=== PATIENT | female | born 1995 | race African-American/Black ===

== ENCOUNTER 2017-08-22 14:14 | Emergency (ER) | payer OTHER ==
[~2017-08-22] VITALS: Ht 165.1 cm; Wt 45.0 kg
[2017-08-22 15:14] VITALS: BP 107/72
[2017-08-22] MEDS ORDERED: HYDR10SY11 PO (15:18)
[2017-08-22] MEDS ORDERED: TERB250T11 PO (15:18)
== END 2017-08-22 18:00 | disposition left against medical advice (07) ==
LOC: ER 14:54
DX: R21 Rash and other nonspecific skin eruption (principal); R07.9 Chest pain, unspecified; Z53.21 Procedure and treatment not carried out due to patient leaving prior to being seen by health care provider

== ENCOUNTER 2017-08-23 11:31 | Emergency (ER) | payer OTHER ==
[~2017-08-23] VITALS: Ht 165.1 cm; Wt 45.0 kg
[~2017-08-23 11:31] MED LIST: HYDR10SY11 PO; TERB250T11 PO
[2017-08-23 12:09] VITALS: BP 134/94
== END 2017-08-23 17:50 | disposition home or self-care (01) ==
LOC: ER 13:30
DX: L42 Pityriasis rosea (principal); B35.9 Dermatophytosis, unspecified; F12.10 Cannabis abuse, uncomplicated
CPT/HCPCS: 99283

== ENCOUNTER 2018-06-28 03:00 | Emergency (ER) | payer OTHER ==
[~2018-06-28] VITALS: Ht 157.5 cm; Wt 48.0 kg
[~2018-06-28 03:00] MED LIST changes: -TERB250T11 PO; +TERB250T51 PO
[2018-06-28] MEDS ORDERED: KETOROLAC 30MG/ML VIAL IV ONE (04:30)
[2018-06-28] MEDS ORDERED: ONDANSETRON HCL 4MG/2ML INJ IV ONE (04:30)
[2018-06-28 04:51] LABS: HEMATOCRIT. 43.9 % (36.0-48.0); HEMOGLOBIN. 14.1 g/dL (12.0-16.0); MEAN CORPUSCULAR HEMOGLOBIN 27.8 pg (28.0-32.0); MEAN CORPUSCULAR VOLUME 86.3 fL (81.0-99.0); MEAN PLATELET VOLUME 9.6 fl (7.4-10.4); PLATELET 254 x1000/uL (130-400); RED BLOOD CELL COUNT 5.08 mill/uL (4.2-5.4); RED CELL DISTRIBUTION WIDTH 14.3 % (11.6-14.6)
[2018-06-28 05:00] LABS: CHLORIDE 103 mEq/L (98-107)
[2018-06-28 05:33] LABS: CLARITY URINE CLOUDY (CLEAR); COLOR URINE YELLOW (YELLOW); KETONES URINE 3+ (NEGATIVE); LEUKOCYTE ESTERASE URINE NEGATIVE (NEGATIVE); NITRITE URINE NEGATIVE (NEGATIVE); OCCULT BLOOD URINE NEGATIVE (NEGATIVE); PROTEIN URINE NEGATIVE (NEGATIVE); SPECIFIC GRAVITY URINE 1.015 (1.005-1.030); UROBILINOGEN URINE 0.2 E.U./dL (0.2-1.0)
[2018-06-28 05:55] VITALS: BP 110/66
[2018-06-28 07:43] LABS: PLATELET ESTIMATE NORMAL
== END 2018-06-28 06:26 | disposition left against medical advice (07) ==
LOC: ER 03:00
DX: R10.2 Pelvic and perineal pain (principal); R11.2 Nausea with vomiting, unspecified; F12.10 Cannabis abuse, uncomplicated; Z90.89 Acquired absence of other organs; Z88.0 Allergy status to penicillin; Z88.6 Allergy status to analgesic agent
CPT/HCPCS: 36415; 76830; 76856; 80053; 81003; 81025; 85025; 96374; 96375; 99284; J1885; J2405

== ENCOUNTER 2019-06-09 12:20 | Emergency (ER) | payer OTHER ==
[~2019-06-09] VITALS: Ht 167.6 cm; Wt 54.0 kg
[2019-06-09] MEDS ORDERED: SODIUM CHLORIDE 0.9% 1,000 ML IV ONE (13:02)
[2019-06-09 13:30] LABS: BASOPHILS % 0.5 % (0.0-2.0); EOSINOPHILS % 1.6 % (0.0-5.0); HEMATOCRIT. 39.8 % (36.0-48.0); LYMPHOCYTES % 17.8 % (20.0-50.0); MEAN CORPUSCULAR HEMOGLOBIN 27.2 pg (28.0-32.0); MEAN CORPUSCULAR VOLUME 83.1 fL (81.0-99.0); MEAN PLATELET VOLUME 9.4 fl (7.4-10.4); NEUTROPHILS % 72.1 % (40.0-76.0); PLATELET 211 x1000/uL (130-400); RED BLOOD CELL COUNT 4.79 mill/uL (4.2-5.4); RED CELL DISTRIBUTION WIDTH 16.7 % (11.6-14.6)
[2019-06-09 13:37] LABS: CHLORIDE 110 mEq/L (98-107)
[2019-06-09 13:42] LABS: HCG SCREEN NEGATIVE
[2019-06-09 16:55] VITALS: BP 109/67
== END 2019-06-09 17:11 | disposition home or self-care (01) ==
LOC: ER 12:20
DX: R55 Syncope and collapse (principal); E86.0 Dehydration
CPT/HCPCS: 36415; 71045; 80053; 82962; 83735; 83880; 84484; 84703; 85025; 93005; 96360; 96361; 99284; J7030; Z7610

== ENCOUNTER → 2020-03-20 13:39 | Emergency (ER) | payer OTHER ==
[2020-03-20 13:51] VITALS: BP 114/72
== END | disposition left against medical advice (07) ==
LOC: ER 13:39
DX: Z53.21 Procedure and treatment not carried out due to patient leaving prior to being seen by health care provider (principal)

== ENCOUNTER 2020-11-24 10:39 | Emergency (ER) | payer OTHER ==
[~2020-11-24] VITALS: Ht 165.1 cm; Wt 45.0 kg
[2020-11-24] MEDS ORDERED: ONDANSETRON 4MG ODT PO STA (11:17)
[2020-11-24 11:29] LABS: HEMATOCRIT. 42.8 % (36.0-48.0); HEMOGLOBIN. 14.2 g/dL (12.0-16.0); MEAN CORPUSCULAR HEMOGLOBIN 26.8 pg (28.0-32.0); MEAN CORPUSCULAR VOLUME 80.6 fL (81.0-99.0); MEAN PLATELET VOLUME 9.5 fl (7.4-10.4); PLATELET 243 x1000/uL (130-400); RED CELL DISTRIBUTION WIDTH 18.1 % (11.6-14.6)
[2020-11-24] MEDS ORDERED: SODIUM CHLORIDE 0.9% 1,000 ML IV ONE (11:30)
[2020-11-24] MEDS ORDERED: MAGNESIUM/ALUMINUM HYDROXIDE/SIMETHICONE 30ML UDC PO ONE (11:30)
[2020-11-24] MEDS ORDERED: MORPHINE SULFATE 4 MG/ML CPJ (NOT FOR IM USE) IV STA (11:30)
[2020-11-24] MEDS ORDERED: FAMOTIDINE 20MG TABLET PO SCH (11:30)
[2020-11-24] MEDS ORDERED: VISCOUS LIDOCAINE 2% 15 ML UDC PO ONE (11:30)
[2020-11-24 11:40] LABS: CHLORIDE 106 mEq/L (98-107)
[2020-11-24 12:41] LABS: PLATELET ESTIMATE NORMAL
[2020-11-24 13:07] LABS: UCG SCREEN NEGATIVE
[2020-11-24] MEDS ORDERED: SODIUM CHLORIDE 0.9% 1,000 ML IV NR (13:15)
[2020-11-24 13:16] LABS: CLARITY URINE CLEAR (CLEAR); COLOR URINE YELLOW (YELLOW); KETONES URINE 3+ (NEGATIVE); LEUKOCYTE ESTERASE URINE NEGATIVE (NEGATIVE); NITRITE URINE NEGATIVE (NEGATIVE); OCCULT BLOOD URINE 1+ (NEGATIVE); PROTEIN URINE 2+ (NEGATIVE); SPECIFIC GRAVITY URINE 1.017 (1.005-1.030); UROBILINOGEN URINE 0.2 E.U./dL (0.2-1.0)
[2020-11-24] MEDS ORDERED: IOHEXOL-300 100 ML BOTTLE ONE (14:58)
[2020-11-24] MEDS ORDERED: ONDA4TAB5 MT (15:01)
[2020-11-24 15:08] VITALS: BP 109/59
== END 2020-11-24 17:08 | disposition home or self-care (01) ==
LOC: ER 10:39
DX: R10.13 Epigastric pain (principal); R11.2 Nausea with vomiting, unspecified; F17.290 Nicotine dependence, other tobacco product, uncomplicated; F12.10 Cannabis abuse, uncomplicated; Z88.0 Allergy status to penicillin
CPT/HCPCS: 36415; 71045; 74177; 80053; 81003; 81025; 83605; 83690; 84484; 85025; 93005; 96361; 96374; 99285; J2270; J7030; Q0162; Q9967; Z7610

== ENCOUNTER 2020-12-27 01:36 | Emergency (ER) | payer OTHER ==
[~2020-12-27] VITALS: Ht 165.1 cm; Wt 46.0 kg
[~2020-12-27 01:36] MED LIST changes: +ONDA4TAB5 MT
[2020-12-27] MEDS ORDERED: ACET-2708 MT (02:58)
[2020-12-27 03:09] VITALS: BP 114/72
== END 2020-12-27 03:09 | disposition home or self-care (01) ==
LOC: ER 01:36
DX: S90.32XA Contusion of left foot, initial encounter (principal); V47.1XXA Car passenger injured in collision with fixed or stationary object in nontraffic accident, initial encounter; Y93.89 Activity, other specified; Y92.488 Other paved roadways as the place of occurrence of the external cause; F12.90 Cannabis use, unspecified, uncomplicated; Z88.0 Allergy status to penicillin; Z79.899 Other long term (current) drug therapy
CPT/HCPCS: 99282

== ENCOUNTER 2021-04-16 19:40 | Emergency (ER) | payer OTHER ==
[~2021-04-16] VITALS: Ht 165.1 cm; Wt 46.0 kg
[~2021-04-16 19:40] MED LIST changes: +ACET-2708 MT
[2021-04-17] MEDS ORDERED: ACETAMINOPHEN 325MG TABLET PO ONE
[2021-04-17] MEDS ORDERED: TOPUD MT (00:59)
[2021-04-17 01:08] VITALS: BP 122/78
== END 2021-04-17 01:09 | disposition home or self-care (01) ==
LOC: ER 19:40
DX: S90.32XA Contusion of left foot, initial encounter (principal); W50.0XXA Accidental hit or strike by another person, initial encounter; Y93.89 Activity, other specified; Y92.89 Other specified places as the place of occurrence of the external cause; Y99.8 Other external cause status; F12.10 Cannabis abuse, uncomplicated; Z79.899 Other long term (current) drug therapy; Z88.0 Allergy status to penicillin
CPT/HCPCS: 73630; 81025; 99283